=== PATIENT | male | born 1980 | race Caucasian/White ===

== ENCOUNTER 2024-06-17 06:42 | Day surgery (SDC) | payer OTHER, SELFPAY ==
[2024-06-15 12:42] VITALS: BMI 27.4
[2024-06-17 07:24] VITALS: BP 125/83; PULSE 68; RESP 18; TEMP 36.4; O2SAT 99
[2024-06-17] MEDS: Lactated Ringers 1,000 ML 80 ML IVCONT (07:44)
--- NOTE | 2024-06-17 08:19 | P.CONAN_ITS ---
HPI - Anesthesia Eval Consult details Narrative: 44 yo M presenting for colonoscopy [facility] Past Medical History Medical History (Updated 06/15/24 @ 12:45 by Cecile Heredia RN) Family history of colon cancer in father Family History Family history of problems with anesthesia: No Surgical History Surgical History (Updated 06/17/24 @ 07:24 by Polina Eddy RN) [place] teeth extracted Surgical history unknown History of Problems with Anesthesia: No Social History Social History (Updated 06/15/24 @ 12:42 by Cecile eHredia RN) Household Members: Spouse Patient Tobacco Use Status: Tobacco use Unknown Advance Directives: No Advance Directives Information Provided: Yes Meds Allergies Allergy/AdvReac Type Severity Reaction Status Date / Time No Known Allergies Allergy Unverified 05/10/20 18:30 Active Medications: Current Medications Lactated Ringer's (Lr) 1,000 mls @ 80 mls/hr IVCONT .[id number] TERESO Last Admin: 06/17/24 07:44 Dose: 80 mls/hr Home Medications ?Medication ?Instructions ?Recorded ?Confirmed ?Last Taken ?Type No Known Home Meds 06/15/24 06/15/24 Unknown History Exam Exam Date and Time: 06/17/24 0820 Height,Weight and Vital Signs: Height 6 ft 4.5 in Weight 103.419 kg Last Vital Signs Temp 97.5 F 06/17/24 07:24 Pulse 68 06/17/24 07:24 Resp 18 06/17/24 07:24 BP 125/83 06/17/24 07:24 Pulse Ox 99 06/17/24 07:24 O2 Del Method Room Air 06/17/24 07:24 Airway Mallampati Class: II TM Dist: >3cm Neck ROM: Full Loose/Missing/Broken Teeth: No (patient denies any loose or broken teeth) Heart: S1S2 Lungs: CTAB Assessment and Plan Assessment Anesthesia Assessment: Anesthesia Plan Discussed and Chart Reviewed Final Anesthetic Review Family History of Problems with Anesthesia: No History of Problems with Anesthesia: No NPO: Yes ASA Class: I Final Preanesthetic Review: No Changes in Pt Med Stat, Meds/Allgs Chart Reviewed, Consent Obtained/Reviewed and Anes Risks/Benef Reviewed Patient Risk: Low Procedure Risk: Low Anesthetic Plan Anesthetic Plan: MAC: and Agree w/ Assess. and Plan Disposition: Standard PACU
--- NOTE | 2024-06-17 08:21 | P.HPSUR_ITS ---
Pre-Procedural Eval Section A - 24 Hr Update-Section A only Date of Service: 06/17/24 Section B - Complete if H&P > 30 days Chief Complaint: Encounter for screening for malignant neoplasm of Details of Present Illness: see H&P no changes Relevant Family History (Specify if Yes): No Relevant Social History: None Present Medications: see Short Stay Collaborative assessment Medical History: No relevant PMH History of Previous Operations: No relevant previous surgery Allergies: Allergies Allergy/AdvReac Type Severity Reaction Status Date / Time No Known Allergies Allergy Unverified 05/10/20 18:30 Review of Systems Sugical H&P ROS: Negative: Constitution, Cardiovascular, Respiratory, Neurological, Psychiatric, Hem-Onc, Allergic/Immunologic, Gastrointestinal, Genitourinary, Musculoskeletal, Integumentary, Endocrine and Eyes/Ear s/Nose/Throat Exam Surgical H&P Exam: Normal: HEENT, Normal: Heart, Normal: Lungs, Normal: Extremities, Normal: Abdomen, Normal: Skin and Normal: Neurological Plan Diagnosis/Plan: Unchanged I have reviewed the history and physical and performed a pertinent physical examination on my patient. No changes have occurred unless specified. Time Spent With Patient Time: Total time managing care of this patient today ____ minutes.
[2024-06-17 08:59] VITALS: BP 95/56; PULSE 71; RESP 16; TEMP 36.3; O2SAT 98
[2024-06-17 09:14] VITALS: BP 114/70; PULSE 62; RESP 18; TEMP 36.4; O2SAT 99
--- NOTE | 2024-06-17 09:35 | OP_ITS ---
DATE OF SERVICE: 06/17/2024 SURGEON: Yvon Key MD INDICATIONS: Colon cancer screening. PREOPERATIVE DIAGNOSIS: POSTOPERATIVE DIAGNOSIS: PROCEDURE PERFORMED: Colonoscopy to the terminal ileum with snare polypectomy. ESTIMATED BLOOD LOSS: COMPLICATIONS: ANESTHESIA: Monitored anesthesia care. ASSISTANTS: SPECIMENS: DESCRIPTION OF PROCEDURE: A history and physical was performed. The risks and benefits of the procedure were explained to the patient. Informed consent was obtained. The patient was placed in the left lateral decubitus position. A digital rectal exam was performed and was found to be normal. The Olympus pediatric video colonoscope was introduced into the rectum and advanced to the cecum. The cecum was identified by transillumination, palpation, and identification of ileocecal valve. Examination was performed. The scope was removed. He tolerated the procedure well and was returned to the recovery area in stable condition. FINDINGS: The terminal ileum was examined and appeared normal. The visualized colonic mucosa was within normal limits without evidence of masses or ulcers. The quality of the prep was good. Two polyps were identified and removed with a cold snare. These were located at 50 cm and in the rectum, both measured less than 10 mm. No other polyps were identified. Retroflexed examination was normal. IMPRESSION: Colon polyps. RECOMMENDATION: Follow up the biopsy results. MD LUPE Guzman/TIA / [id number]
--- NOTE | 2024-06-17 09:46 | PM.OP ---
Brief Operative Note Date of Service: 06/17/24 Pre-op diagnosis: screening Post-op diagnosis: same Procedure: colonoscopy Surgeon: Yvon Key MD Anesthesia: MAC Was an Operations/Dispatch used for this Procedure?: No Estimated blood loss (mL): 5 Pathology: other
== END 2024-06-17 09:40 | disposition home or self-care (01) ==
PROVIDERS: PCP Internal Medicine; Visit Provider Internal Medicine Gastroenterology
PROC: 0DJD8ZZ Inspection of Lower Intestinal Tract, Via Natural or Artificial Opening Endoscopic (ICD-10-PCS; CPT 45378; principal; 2024-06-17 08:30)
DX: Z12.11 Encounter for screening for malignant neoplasm of colon (principal); Z80.0 Family history of malignant neoplasm of digestive organs; Z83.719 Family history of colon polyps, unspecified; D12.5 Benign neoplasm of sigmoid colon; D12.8 Benign neoplasm of rectum
CPT/HCPCS: 45385; 88305; J2003; J2704